=== PATIENT | female | born 1980 | race Caucasian/White ===

== ENCOUNTER 2022-06-18 06:03 | Outpatient (CLI) | payer OTHER, SELFPAY ==
--- NOTE | 2022-06-18 06:15 | US_ITS ---
WS: [id number] RIGHT UPPER QUADRANT ULTRASOUND HISTORY: Abdominal pain. COMPARISON: None available. Liver: 13.7 cm in length. Normal size liver. No mass or intrahepatic dilatation. Portal Vein: Normal hepatopetal flow with monophasic waveform. Gallbladder: Abnormal gallbladder. Gallbladder is contracted and there are stones and sludge. There i s a stone in the gallbladder neck which is probably entrapped measuring 1.4 cm. This stone does appea r to remain within the gallbladder. There is a larger stone in the lumen of the gallbladder measuring 1.9 cm. Gallbladder wall measures 4 mm. CBD: 0.5 cm Pancreas: Normal size and echogenicity. Right kidney: 10.8 cm in length. Normal size and echogenicity. No hydronephrosis or mass. Aorta and IVC: Unremarkable abdominal aorta and IVC. No ascites. US/US abdomen limited [id number] IMPRESSION: 1. Abnormal gallbladder. Stones and sludge with gallbladder wall thickening. A t least one stone is intact at the gallbladder neck. Surgical evaluation and ch olecystectomy recommended. Patient is at risk for developing choledochofistula stone at the gallbladder neck persists. 2. No bile duct dilatation.
== END 2022-06-18 06:04 | disposition home or self-care (01) ==
PROVIDERS: PCP Family Medicine; Visit Provider Family Medicine
DX: K80.11 Calculus of gallbladder with chronic cholecystitis with obstruction (principal)
CPT/HCPCS: 76705

== ENCOUNTER 2022-06-27 11:05 | Day surgery (SDC) | payer OTHER, SELFPAY ==
[2022-06-26 13:13] VITALS: BMI 22.6
[2022-06-27 11:25] VITALS: PULSE 97; RESP 18; TEMP 36.3; O2SAT 97
--- NOTE | 2022-06-27 11:37 | W.PM.OPSUD ---
Surgery/Procedure H&P Update DATE OF PROCEDURE: June 27, 2022 DATE H&P PERFORMED: 06/24/22 PREOP DIAGNOSIS: Symptomatic cholelithiasis PRIMARY INDICATION FOR PROCEDURE: The risks and benefits of the procedure, including but not limited to, bleeding, infection, scar, numbness, pain, damage to surrounding structures, damage to common bile duct requiring additional surgery, conversion to an open procedure, were explained to the patient. She is understanding of the risks and wishes to proceed. PLANNED PROCEDURE: Operation Date: 06/27/22 12:45 Proposed Procedures p Laparoscopic Cholecystectomy 32758,K80.20(Not Applicable) - Arcenio Bone DO
[2022-06-27] MEDS: sodium chloride 0.9% 1,000 ML 30 ML IV (11:38)
--- NOTE | 2022-06-27 12:17 | ANES.PREANE2 ---
Pre-Anesthetic Assessment Height/Weight: Height 1.63 m Weight 59.874 kg O2 Del Method 06/27/22 11:19 Preop Diagnosis: Symptomatic cholelithiasis Operation Date: 06/27/22 12:45 Proposed Procedures p Laparoscopic Cholecystectomy 54521,K80.20(Not Applicable) - Arcenio Bone DO Familial anesthetic complications: none Was Beta Kylie taken within 24 hours: N/A Was Clonidine taken within 24 hours: N/A Last intake: Intake Last Liquid Date 06/26/22 Last Liquid Time 23:30 Last Solid Date 06/26/22 Last Solid Time 18:30 Social No alcohol and No tobacco Exam alert, oriented x 3, clear to auscultation bilaterally and regular rate & rhythm Airway Mallampati: Class II Dentition: full Anesthetic Plan ASA status: 1 Anesthesia: General Medications/Allergies Home Medications Medication Instructions Recorded Confirmed Last Taken Type No Known Home Medications 06/26/22 06/26/22 Unknown History Allergies Allergy/AdvReac Type Severity Reaction Status Date / Time No Known Allergies Allergy Unverified 06/26/22 13:13 Current Medications Generic Name Dose Route Start Last Admin Trade Name Freq PRN Reason Stop Dose Admin Sodium Chloride 1,000 mls @ 30 mls/hr 06/27/22 11:15 06/27/22 11:38 Sodium Chloride 0.9% IV 06/28/22 11:14 30 mls/hr .Q24H PAOLA Administration PFSH Anesthesia Female Reproductive History Date of last menstrual period: 06/16/22 Data Anesthesia Cardiac Studies: No Data to Display
[2022-06-27 12:54] LABS: HCG, Serum Qual Negative (Negative)
[2022-06-27] MEDS: ceFAZolin 2,000 MG in sodium chloride 0.9% (plus) 50 ML 100 MG IV (13:42)
[2022-06-27 14:42] VITALS: BP 133/85; PULSE 98; RESP 16; TEMP 36.2; O2SAT 97
[2022-06-27 14:46] VITALS: BP 108/75; PULSE 99; RESP 18; TEMP 36.2; O2SAT 100
[2022-06-27 14:50] VITALS: BP 141/75; PULSE 95; RESP 18; TEMP 36.2; O2SAT 95
[2022-06-27 15:01] VITALS: BP 134/67; PULSE 94; RESP 16; TEMP 36.2; O2SAT 100
[2022-06-27] MEDS: ondansetron 2 mg/ML SDV 2 mL 4 MG IVP (15:07)
[2022-06-27] MEDS: HYDROcodone-acetaminophen 7.5-325 mg Tablet 1 TAB PO (15:10)
[2022-06-27 15:22] VITALS: BP 138/81; PULSE 80; RESP 18; O2SAT 98
--- NOTE | 2022-06-27 15:30 | ANE.PACU2 ---
Inpatient post-anesthesia follow up: Airway intact: Yes Vital signs: Temperature 97.2 F Pulse Rate 80 Respiratory Rate 18 Blood Pressure 138/81 Pulse Oximetry 98 Oxygen Delivery Me thod Room Air Oxygen Flow Rate Fraction of Inspir ed Oxygen Hydration adequate: Yes Nausea and vomiting: No Pain level: 1 Mental status: Baseline
--- NOTE | 2022-06-27 17:28 | P.OP_ITS ---
Operative Report Date of procedure: June 27, 2022 Pre-op diagnosis: Preop Diagnosis Symptomatic cholelithiasis Post-op diagnosis: same Procedure done: Laparoscopic cholecystectomy Specimens removed/disposition: Gallbladder Surgeon: Dr. Arcenio Bone DO Anesthesia: General Estimated blood loss (mL): 5 Complications: None apparent Brief History: This very pleasant 41-year-old female with symptomatic cholelithiasis. Laparoscopic cholecystectomy is indicated. The risks and benefits were explained and documented. Procedure: Patient was wheeled into the operative room and placed on the OR table in a supine position. Abdomen was inspected prepped and draped in usual sterile fashion. Time-out was performed and all present were in agreement. A 15 blade scalp was used to make a stab incision in the left upper quadrant and intra- abdominal insufflation was achieved using a Veress needle. After localizing the tissue incisions were made and a 5 millimeter trocar was placed into the um bilicus as well as 2 in the right upper quadrant. A 12 millimeter trocar was placed in the epigastrium. Gallbladder was grasped and elevated. The triangle of Calot was carefully dissected using blunt dissection and electrocautery until the triangle of Calot clearly identified. The cystic duct was clipped proximally and double clipped distally. The duct was then ligated proximally. The cystic artery was doubly clipped and ligated. The gallbladder was then removed from the liver bed using electrocautery. The gallbladder was removed from the abdomen using an Endo-Catch bag through the epigastric incision. The liver bed was inspected and no bleeding was seen. The abdomen was irrigated and suctioned. All ports removed. Skin was washed and dried. Incisions were closed with 3-0 and 4-O Monocryl in a subcuticular interrupted fashion. Skin glue was applied. Patient tolerated the procedure well.
== END 2022-06-27 15:42 | disposition home or self-care (01) ==
PROVIDERS: Anesthesiology; PCP Family Medicine; Visit Provider Surgery
PROC: 0FT44ZZ Resection of Gallbladder, Percutaneous Endoscopic Approach (ICD-10-PCS; CPT 47562; principal; 2022-06-27 12:25)
DX: K80.10 Calculus of gallbladder with chronic cholecystitis without obstruction (principal)
CPT/HCPCS: 47562; 81025; 84703; 88304; J0690; J1100; J1200; J2250; J2405; J2704; J3010; J3490; J7030

== ENCOUNTER 2022-11-28 11:04 | Outpatient (CLI) | payer OTHER, SELFPAY ==
--- NOTE | 2022-11-28 11:08 | MM_ITS ---
WS: [id number] SCREENING DIGITAL TOMOSYNTHESIS MAMMOGRAM WITH CAD HISTORY: SCREENING COMPARISON: None available. Bilateral CC and MLO with tomosynthesis views submitted. Synthetic mammography reviewed. Computer aid ed detection analyzed. Breast composition: The breasts are heterogeneously dense, which may obscure small masses. No suspici ous masses, microcalcifications or architectural distortion. MM/[place] [id number] IMPRESSION: BI-RADS: 1-Negative FOLLOW UP: 1 Year Follow-up
== END 2022-11-28 11:05 | disposition home or self-care (01) ==
LOC: RAD 11:05
PROVIDERS: PCP Family Medicine; Visit Provider Family Medicine
DX: Z12.31 Encounter for screening mammogram for malignant neoplasm of breast (principal)
CPT/HCPCS: 77063; 77067

== ENCOUNTER → 2024-07-26 08:30 | Outpatient (BNVA) | payer OTHER, SELFPAY | PROVIDERS: PCP Family Medicine; Visit Provider Family Medicine | DX: Z13.6 Encounter for screening for cardiovascular disorders (principal) | CPT/HCPCS: 80061; 82947; 83036 ==